=== PATIENT | male | born 1940 | race Caucasian/White ===

== ENCOUNTER 2019-11-04 20:53 | Inpatient (IN) | payer OTHER ==
[~2019-11-04] VITALS: Ht 177.8 cm; Wt 115.7 kg
--- NOTE | ~2019-11-04 | D ---
[facility] [place] [address] DISCHARGE SUMMARY Name: HERNAN MCCARTY Room #: 518B-B DIS IN M.R.#: [id number] Admission: 11/05/19 Attend Phys: Devon Ashley DO Discharge: 11/07/19 Date of : 44 Report #: [id number] THIS REPORT FOR: //name// CC: Devon Ashley FAM unknown Rafat Martins DATE OF SERVICE: 11/07/2019 INPATIENT PSYCHIATRIC EVALUATION ATTENDING PHYSICIAN: Devon Ashley DO. HIGH LIFT OPERATOR: Mike Jessica MD. DISCHARGE DIAGNOSES: Unspecified depressive disorder, improved, obesity, recent vertigo, complicated grief, daily drinking allegedly, question of substance use disorder. The patient was discharged to home. Lives with his in [place], [place], establishing Psychiatric and [facility]. His primary care physician, Dr. Martins, was encouraged to see in the next month. The patient was on so called ____ carbohydrate diet. The patient was given [place] [employer] Prevention of Suicide ____ education. Firearm has been confirmed, given to son-in-law. REASON FOR ADMISSION: The patient was sent to us from [facility]. Apparently, he was admitted there for symptoms of vertigo, question of a stroke. He admitted to suicidal ideation, several recent family tragedies, seen by a telepsychiatrist, Dr. Reeves, believed in aid in patient admission. HOSPITAL COURSE: The patient was admitted to Geriatric Psychiatry Unit. He was started on Lexapro, has been prescribed by his PCP, but the patient did not take. Interestingly, he had cataract surgery scheduled in the afternoon on 11/07/2019 and will be discharged with that, his collateral checked out and addiction social worker was informed ____ with his , who did not meet criteria for involuntary hospitalization. No suicidal or homicidal, ready for discharge. He takes his ____ which is a combination of amlodipine and atorvastatin 10 mg p.o. daily, aspirin 81 mg p.o. daily, Ditropan XL, oxybutynin XL 15 mg p.o. daily. New medications, Lexapro 10 mg p.o. daily. The patient is sleeping and eating appropriately and participating in ____. DISCHARGE VITAL SIGNS: On the day of discharge are as follows: Temperature 36.8, pulse 83, respirations 18, BP 118/64. MUSCULOSKELETAL: Normal gait and station. [facility] [address] [place] [address] DISCHARGE SUMMARY Name: HERNAN MCCARTY Room #: 518B-B [facility] IN M.R.#: [id number] Admission: 11/05/19 Attend Phys: Devon Ashley, DO Discharge: 11/07/19 Date of : 44 Report #: [id number] MENTAL STATUS EXAMINATION: This is a well-developed, well-nourished, obese male, appearing stated age. He does have a history of service. Attention intact. Speech is normal rate, volume and tone. Thought process is linear and goal directed. Thought content future oriented, want to get an eye surgery done, eager to improve things for himself. Denied SI or HI. Denied auditory, visual, or tactile hallucinations. Memory not formally tested. Insight fair. Judgment fair. Fund of knowledge average. Prognosis for this patient is fair to guarded depending on his following through on outpatient treatment plan and he [facility] and [facility] and keeping himself busy as he has relatively recently retired. By: [id number] Devon Ashley, DO /nt
[2019-11-04] MEDS ORDERED: AMLODIPINE-ATO1 EAC4 PO (23:40)
[2019-11-04] MEDS ORDERED: ASA81BEC PO (23:41)
[2019-11-04] MEDS ORDERED: BUPROPION XL300 MG PO (23:43)
[2019-11-04] MEDS ORDERED: CELEXA 10 MG TA10 M1 PO (23:47)
[2019-11-04] MEDS ORDERED: LEXAPRO 10 MG T10 M1 PO (23:49)
[2019-11-04] MEDS ORDERED: OXYBUTYNIN ER 55 M1 PO (23:50)
[2019-11-05 03:48] VITALS: BP 144/79
--- NOTE | 2019-11-05 04:57 | NUR ---
ARRIVED VIA EMS ON [facility] @ 0345. TRANSFERRED FROM [facility] TO BED WITH STEADY GAIT. CALM AND COOPERATIVE WITH ASSESSMENT AND INTAKE. HEART RATE AND RHYTHM REGULAR, S1S2 NOTED, LUNGS DIMINISHED LOWER [place]ING[place] AND CLEAR UPPER FIELD. HEELS INTACT, ELBOWS INTACT. SKIN DRY AND PINK, WELL HYDRATED AND INTACT. REGULAR DIET,
--- NOTE | 2019-11-05 06:07 | NUR ---
SLEPT 1.2 HOURS
--- NOTE | 2019-11-05 07:30 | NUR ---
Assumed care of patient this am. Patient in bedroom sitting in the bed. Patient denies pain. Patient ambulates with out assistance. Patient denies si/hi. Patient takes medications whole with thin fluids. Patients assessment shows clear breath sounds, active bowel sounds, and s1 s2 heard with auscultation. Patient calm, content and adherent with scheduled medications.
[2019-11-05 08:00] VITALS: BP 147/79
[2019-11-05 08:18] VITALS: BP 147/79
--- NOTE | 2019-11-05 12:01 | NUR ---
SW met with pt to complete the inake assessment and TP. Pt stated he has had morbid thoughts for most of his life and is not suicidal. He stated that he has cataract surgery on Wednesday at 1pm that he's been waiting for , for 6 months. Pt's PCP is Dr Rafat Martins and is willing to see a psych and mental health therapist at [facility]. Pt feels satisfied in his marriage and has a busy life that brings him satisfaction.
[2019-11-05 19:06] VITALS: BP 141/75
[2019-11-05 21:46] VITALS: BP 141/75
--- NOTE | 2019-11-05 23:34 | NUR ---
PATIENT WAS SLEEPING WHEN THIS NURSE CAME ON SHIFT TONIGHT. PATIENT WAS ASSESSED AND IS A/OX4. HE IS CONSIDERED A FALL RISK D/T A FALL HE HAD BEFORE HE CAME IN TO HOSPITAL AFTER HAVING VERTIGO AND FALLING IN A PARKING LOT. OTHERWISE, PATIENT IS UP AND AMBULATES AND IS STEADY ON HIS FEET. PATIENT DENIES PAIN. HE DENIES ANY SI. HE IS DEPRESSED AND GRIEVING THE LOSS OF HIS DAUGHTER 16MONTHS AGO. PATIENT IS PLEASANT AND COOPERATIVE. BILATERAL LCTA, HEART REGULAR, BOWEL SOUNDS POSITIVE X 4. NEW ORDER FOR TRAZADONE 100MG HS PRN IF NEEDED FOR SLEEP. PATIENT WAS UP TO TOILET AND BACK TO BED. BED IN LOW POSITION AND BED ALARM ON.
[2019-11-06 07:23] VITALS: BP 132/64
--- NOTE | 2019-11-06 11:01 | NUR ---
0715 Sitting up in chair in room without s/o distress. Alert and orientated X4, denies SI/HI, pain. States he is concerned that he will miss his cataract surgery scheduled for tomorrow in [place]. States he has waited 6 mon for appointment. States he would like to be discharged. Calm and compliant. Breath sounds clear t/o, bilaterally equal. Reg HR auscultated. Color pink with brisk capillary refill and palpable peripheral pulses. Voiding independently. Active bowel sounds over soft, rounded abdomen. Ambulating with regular, steady gait. 1000 Ate breakfast. Calm and compliant, participating in group.
--- NOTE | 2019-11-06 14:00 | NUR ---
NOE contacted pt's who said she will be availble to pick pt up tomorrow at 11am, and then take him to his appt for cataract surgery in the afternoon. SW explained that she will contact their nearest [facility] to see how pt can engage in services. NOE contacted [facility] and found out the process to getting enrolled in their services. The rep told SW that they do not have [facility] psychotherapists at this time, but that she will email SW a listing of psychotherapists that accept insurance. NOE provided this update to pt. SW team will continue to follow pt during his stay on this unit. The [address] [address] [phone]
[2019-11-06 14:05] VITALS: BP 132/64
[2019-11-06 20:06] VITALS: BP 135/60
[2019-11-06 20:48] VITALS: BP 135/60
--- NOTE | 2019-11-06 21:12 | NUR ---
PATIENT IS A/OX4. HE DENIES PAIN. HE DID TAKE HIS HS MED OF OXYBUTIN TONIGHT. HE STATES IT GIVES HIM A HEADACHE BUT WENT AHEAD AND TOOK IT. HE IS SMILING, CALM AND COOPERATIVE. HE IS TO BE DC/D TO HOME IN AM. HE HAS CATARACT SURGERY SCHEDULED TOMORROW ALSO. HE IS UP TO THE TOILET TO VOID. HE IS STEADY ON HIS FEET. VSS. BED IN LOW POSITION. DENIES PAIN. ROUTINE ROUNDING. WILL CONTINUE TO MONITOR.
--- NOTE | 2019-11-07 03:50 | NUR ---
PATIENT HAS BEEN UP TO THE BATHROOM TWICE WITH ASSISTANCE AND USING HIS WALKER. HE IS WALKING WITH MORE STEADY GAIT TONIGHT SINCE RISPERIDONE HAS BEEN STOPPED. HE IS NOT DIAPHORETIC EITHER. PATIENT BACK TO BED AND SLEEPING. BED IN LOW POSITION AND BED ALARM ON. NO BEHAVIORS.
--- NOTE | 2019-11-07 03:53 | NUR ---
PATIENT SLEEPING SOUNDLY. NO COMPLAINTS. DENIES PAIN. BED IN LOW POSITION. WILL CONTINUE TO MONITOR.
--- NOTE | 2019-11-07 08:33 | NUR ---
NOE spoke with [facility] in [place] and set up an appt to see Dr Buitrago on 11/13 at 8am. NOE faxed the d/c summary and orders [address] [phone] ext [phone] (f) [phone]
--- NOTE | 2019-11-07 08:43 | EKG ---
[place] [address] [place] [address] ELECTROCARDIOGRAM REPORT Name: HERNAN MCCARTY Room #: 518B- ADM IN M.R.#: [id number] Admission: 11/05/19 Attend Phys: Devon Ashley DO Discharge: Date of : 44 Report #: [id number] THIS REPORT FOR: //name// [facility] Test Date: 2019-11-07 Test Time: 08:19:07 Pat Name: HERNAN MCCARTY Department: Room: [facility] Gender: M Maternity Nurse: Ivan REDDY : 1940 Requested By: Mike Jessica Order Number: [id number] MD: Chad Dubois Measurements Intervals [place] Rate: 80 P: 52 KS: 170 QRS: -7 QRSD: 81 T: 38 QT: 352 QTc: 406 Interpretive Statements Sinus rhythm Ventricular premature complex No previous ECG available for comparison Electronically Signed On 11-07-2019 8:42:40 [employer] by Chad Dubois [email or web address] <ELECTRONICALLY SIGNED> By: Chad Dubois MD, [facility] 11/07/19 0842 8 8 Chad Dubois MD, FACC /EPI
[2019-11-07 09:06] VITALS: BP 110/64
--- NOTE | 2019-11-07 10:04 | NUR ---
0715 Sitting in room without S/O distress. Alert and orientated X4. States he is nauseated from med given to him this AM, declines ondansetron. Denies SI/HI, pain. Breath sounds clear t/o, bilaterally equal. Irregular HR in 90s auscultated. Color pink with brisk capillary refill and palpable peripheral pulses. No edema noted in lower extremities, compression socks in place. Voiding independently. Active bowel sounds over large, rounded abdomen. Ambulates with regular gait. BP 110/64, HR 62. Denies CP, no s/o shortness of breath. Dr. Jessica notified of nausea, irregular HR. 12 lead EKG ordered. 1015 Repeat BP 118/64. HR regular at 83. No s/o distress. Dr. Ashley notified of EKG, will fax to PCP. Dr. Ashley interviewing pt at this time in preparation of discharge.
[2019-11-07] MEDS ORDERED: LEXAPRO 10 MG T10 M1 PO (10:05)
[2019-11-07 10:22] VITALS: BP 118/64
--- NOTE | 2019-11-07 15:34 | NUR ---
NOE d/c note NOE faxed discharge documents and H&P to the [facility] in [place] at [phone]. NOE submitted this fax to pt's file. No other need for NOE team to address at this time.
== END 2019-11-07 11:30 | disposition home or self-care (01) | DRG 881 ==
LOC: SBH 20:53
PROVIDERS: ADMIT Psychiatry & Neurology Psychiatry
DX: F32.9 Major depressive disorder, single episode, unspecified (principal); R45.851 Suicidal ideations; E66.9 Obesity, unspecified; I10 Essential (primary) hypertension; E78.5 Hyperlipidemia, unspecified; G93.89 Other specified disorders of brain; Z79.899 Other long term (current) drug therapy; Z68.36 Body mass index [BMI] 36.0-36.9, adult; Z79.82 Long term (current) use of aspirin; Z98.41 Cataract extraction status, right eye
CPT/HCPCS: 10880